=== PATIENT | female | born 2000 | race Hispanic/Latino ===

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

== ENCOUNTER 2018-07-15 22:31 | Emergency (ER) | payer BC ==
[2018-07-15] MEDS ORDERED: Sodium Chloride 0.9% 2,500 ML IV ONE (23:14)
--- NOTE | 2018-07-15 23:14 | C.PDOC ---
History Of Present Illness 18 year old female presents to the ER complaining of throat pain and swelling for the past 2-3 days associated with intermittent subjective fever and chills. Patient reports today she has had multiple episodes of diarrhea and vomiting that began an hour [employer]. Patient has been taking advil for her throat pain with minimal relief. Denies cough, sick contact or recent travel. MDM PHARYNGITIS/TONSILITIS, NO PERITONSILLAR ABSCESS. +TACHYCARDIA, PROBABLE DUE TO FEVER AND DEHYDRATION. LABS, MEDS, SEPSIS IVF PROTOCOL <Lisa Snowden - Last Filed: 07/16/18 00:49> History Per: Patient History/Exam Limitations: no limitations Onset/Duration Of Symptoms: Days (2-3) Current Symptoms Are (Timing): Still Present Recent travel outside of the [place]: No <Lisa Snowden - Last Filed: 07/16/18 00:49> <Beth Christian - Last Filed: 07/16/18 03:26> Time Seen by Provider: 07/15/18 23:04 Chief Complaint (Nursing): Abdominal Pain Past Medical History Reviewed: Historical Data, Nursing Documentation, Vital Signs Vital Signs: Last Vital Signs Temp 99.7 F H 07/15/18 22:35 Pulse 133 H 07/15/18 23:07 Resp 27 H 07/15/18 23:07 BP 116/55 L 07/15/18 23:07 Pulse Ox 98 07/15/18 23:07 Primary Care Provider: Non [facility] Provider, Family History: States: Unknown Family Hx - Social History Hx Tobacco Use: No Hx Alcohol Use: No Hx Substance Use: No - Immunization History Hx Tetanus Toxoid Vaccination: No Hx Influenza Vaccination: No Hx Pneumococcal Vaccination: No <Lisa Snowden - Last Filed: 07/16/18 00:49> Vital Signs: Last Vital Signs Temp 98.3 F 07/16/18 03:22 Pulse 85 07/16/18 03:22 Resp 16 07/16/18 03:22 BP 113/65 07/16/18 03:22 Pulse Ox 96 07/16/18 03:22 <Beth Christian - Last Filed: 07/16/18 03:26> Review Of Systems Except As Marked, All Systems Reviewed And Found Negative. Constitutional: Positive for: Fever (Subjective), Chills ENT: Positive for: Throat Pain Respiratory: Negative for: Cough Gastrointestinal: Positive for: Vomiting, Diarrhea <Lisa Snowden - Last Filed: 07/16/18 00:49> Physical Exam - Physical Exam Appears: Non-toxic Skin: Normal Color, Warm Head: Atraumatic, Normacephalic Eye(s): bilateral: Normal Inspection Oral Mucosa: Moist Throat: Other (Enlarged tonsils bilaterally, kissing, uvula midline, scant exudates, no drooling, no stridor) Neck: Normal, Supple Chest: Symmetrical, No Tenderness Cardiovascular: Rhythm Regular (Tachycardic) Respiratory: Normal Breath Sounds, No Rales, No Rhonchi, No Wheezing Gastrointestinal/Abdominal: Soft, No Tenderness Neurological/Psych: Oriented x3, Normal Speech <Lisa Snowden - Last Filed: 07/16/18 00:49> ED Course And Treatment - Laboratory Results Result Diagrams: 07/15/18 23:42 07/15/18 23:42 Urine POC: Negative ECG: Interpreted By La ECG Rhythm: Sinus Tachycardia ECG Interpretation: Abnormal Rate From EC O2 Sat by Pulse Oximetry: 98 Pulse Ox Interpretation: Normal <Lisa Snowden - Last Filed: 07/16/18 00:49> - Laboratory Results Result Diagrams: 07/15/18 23:42 07/15/18 23:42 Lab Results: pO2 75 mm/Hg (30-55) H 07/16/18 03:03 VBG pH 7.33 (7.32-7.43) 07/16/18 03:03 VBG pCO2 26 mmHg (40-60) L 07/16/18 03:03 VBG HCO3 16.6 mmol/L 07/16/18 03:03 VBG Total CO2 14.5 mmol/L (22-28) L 07/16/18 03:03 VBG O2 Sat (Calc) 97.5 % (40-65) H 07/16/18 03:03 VBG Base Excess -10.5 mmol/L (0.0-2.0) L 07/16/18 03:03 VBG Potassium 2.6 mmol/L (3.6-5.2) L 07/16/18 03:03 Sodium 141.0 mmol/l (132-148) 07/16/18 03:03 Chloride 120.0 mmol/L (98-107) H 07/16/18 03:03 Glucose 81 mg/dl (65-105) 07/16/18 03:03 Lactate 0.6 mmol/L (0.7-2.1) L 07/16/18 03:03 PT 15.3 SECONDS (9.7-12.2) H 07/15/18 23:42 INR 1.4 07/15/18 23:42 APTT 37.1 SECONDS (21-34) H 07/15/18 23:42 Total Bilirubin 1.8 mg/dL (0.2-1.3) H 07/15/18 23:42 AST 32 U/L (14-36) 07/15/18 23:42 ALT < 6 U/L (9-52) L D 07/15/18 23:42 Alkaline Phosphatase 115 U/L (38-126) 07/15/18 23:42 Total Protein 9.4 g/dL (6.3-8.3) H 07/15/18 23:42 Albumin 4.7 g/dL (3.5-5.0) 07/15/18 23:42 Globulin 4.8 gm/dL (2.2-3.9) H 07/15/18 23:42 Albumin/Globulin Ratio 1.0 (1.0-2.1) 07/15/18 23:42 Urine Color Areli (YELLOW) 07/15/18 23:08 Urine Clarity Hazy (Clear) 07/15/18 23:08 Urine pH 5.0 (5.0-8.0) 07/15/18 23:08 Ur Specific [place] 1.020 (1.003-1.030) 07/15/18 23:08 Urine Protein 2+ mg/dL (NEGATIVE) H 07/15/18 23:08 Urine Glucose (UA) Normal mg/dL (Normal) 07/15/18 23:08 Urine Ketones 2+ mg/dL (NEGATIVE) H 07/15/18 23:08 Urine Blood 1+ (NEGATIVE) H 07/15/18 23:08 Urine Nitrate Negative (NEGATIVE) 07/15/18 23:08 Urine Bilirubin Negative (NEGATIVE) 07/15/18 23:08 Urine Urobilinogen 4.0 mg/dL (0.2-1.0) H 07/15/18 23:08 Ur Leukocyte Esterase Neg Minnie/uL (Negative) 07/15/18 23:08 Urine WBC (Auto) 2 /hpf (0-5) 07/15/18 23:08 Urine RBC (Auto) 1 /hpf (0-3) 07/15/18 23:08 Ur Squamous Epith Cells 8 /hpf (0-5) H 07/15/18 23:08 Reevaluation Time: 03:25 Reassessment Condition: Improved (Patient reassessed, is resting comfortably and states she feels much better. Vitals have improved, and patient is comfortable being discharged home.) <Beth Christian - Last Filed: 07/16/18 03:26> Progress - Re-Evaluation Re-evaluation Note: 07/16/18 00:03 neg lactate. PT DOES NOT MEET CODE SEPSIS CRITERIA. IVF IN PROGRES 07/16/18 00:50 MUCH IMPROVED COMPARED TO INITIAL. PS FEELS BETTER. S/P 2L IVF, NO UO. PERSIST TACHYCARDIA IMPROVED FROM INITIAL. WILL CONT IVF UNTIL UO - Data Reviewed Data Reviewed: Lab - Critical Care Citical Care: Excluding Proc Time Critical Care Time: 30 minutes <Lisa Snowden - Last Filed: 07/16/18 00:49> Medical Decision Making Medical Decision Making: PHARYNGITIS/TONSILITIS, NO PERITONSILLAR ABSCESS. +TACHYCARDIA, PROBABLE DUE TO FEVER AND DEHYDRATION. LABS, MEDS, SEPSIS IVF PROTOCOL <Lisa Snowden - Last Filed: 07/16/18 00:49> Disposition Counseled Patient/Family Regarding: Studies Performed, Diagnosis, Need For Followup, Rx Given <Lisa Snowden - Last Filed: 07/16/18 00:49> - Disposition Disposition Time: 03:25 <Beth Christian - Last Filed: 07/16/18 03:26> - Disposition Referrals: [facility] [Outside] [facility] [Outside] Disposition: HOME/ ROUTINE Condition: IMPROVED Prescriptions: Amoxicillin [Amoxil 500 mg Cap] 500 mg PO BID #20 cap Ibuprofen [Motrin] 600 mg PO Q6 #30 tab Ondansetron ODT [Zofran ODT] 4 mg PO TID PRN #12 odt PRN Reason: Nausea/Vomiting Instructions: Dehydration, Adult (DC), Sore Throat, Adult (DC) Forms: [employer] (Czech) Print Language: TAIWANESE - Clinical Impression Clinical Impression: Vomiting, Pharyngitis, Diarrhea, Dehydration - Scribe Statement The provider has reviewed the documentation as recorded by the Scribkrishan Olson All medical record entries made by the Scribe were at my direction and personally dictated by me. I have reviewed the chart and agree that the record accurately reflects my personal performance of the history, physical exam, medical decision making, and the department course for this patient. I have also personally directed, reviewed, and agree with the discharge instructions and disposition. <Lisa Snowden - Last Filed: 07/16/18 00:49> Physician Patient Turnover Patient Signed Over To: Beth Christian Handoff Comments: FU DISPO <Lisa Snowden - Last Filed: 07/16/18 00:49>
[2018-07-15 23:28] LABS: SQUAMOUS EPITHIAL 8 /hpf (0-5); URINE BILIRUBIN NEGATIVE (NEGATIVE); URINE BLOOD 1+ (NEGATIVE); URINE CLARITY Hazy (Clear); URINE COLOR Amber (YELLOW); URINE GLUCOSE (UA) NORMAL (Normal); URINE LEUKOCYTE ESTERASE NEG Leu/uL (Negative); URINE PROTEIN 2+ mg/dL (NEGATIVE)
[2018-07-15 23:48] LABS: VENOUS BLOOD GAS BASE EXCESS 0.4 mmol/L (0.0-2.0); VENOUS BLOOD GAS PCO2 29 mmHg (40-60); VENOUS BLOOD GAS PO2 19 mm/Hg (30-55)
[2018-07-15 23:49] LABS: BASO % 0.3 % (0.0-2.0); HEMOGLOBIN 12.5 g/dL (11.0-16.0); LYMPH # 0.9 K/uL (1.0-4.3); LYMPH % 5.5 % (20.0-40.0); MEAN CORPUSCULAR HEMOGLOBIN 29.7 pg (27.0-31.0); MEAN CORPUSCULAR HGB CONC 34.1 g/dL (33.0-37.0); MEAN PLATELET VOLUME 8.7 fL (7.2-11.7); MONO # 0.9 K/uL (0.0-0.8); MONO % 5.8 % (0.0-10.0); NEUT # 13.6 K/uL (1.8-7.0); NEUT % 88.4 % (50.0-75.0); PLATELET COUNT 261 K/uL (130-400); RED CELL DISTRIBUTION WIDTH 14.2 % (11.5-14.5)
[2018-07-15 23:55] LABS: WHITE BLOOD COUNT 15.4 K/uL (4.8-10.8)
[2018-07-15 23:56] LABS: MEAN CELL VOLUME 87.1 fL (81.0-99.0)
[2018-07-16] LABS: INR 1.4; PARTIAL THROMBOPLASTIN TIME 37.1 SECONDS (21-34); PROTHROMBIN TIME 15.3 SECONDS (9.7-12.2)
[2018-07-16 00:04] LABS: BLOOD UREA NITROGEN 6 mg/dL (7-17); CALCIUM 9.5 mg/dl (8.6-10.4); GFR NON-AFRICAN AMERICAN > 60
[2018-07-16 00:48] LABS: ALBUMIN 4.7 g/dL (3.5-5.0); ALT/SGPT < 6 U/L (9-52); AST/SGOT 32 U/L (14-36)
[2018-07-16] MEDS ORDERED: Sodium Chloride 0.9% 1,000 ML IV ONE (00:48)
[2018-07-16 02:21] LABS: BANDS 2 % (0-2); LYMPHOCYTE 8 % (20-40); MONOCYTE 10 % (0-10); NEUTROPHIL 80 % (50-75); PLATELET ESTIMATE NORMAL (NORMAL); TOTAL CELLS COUNTED 100
[2018-07-16 02:24] VITALS: TEMP 98.3
[2018-07-16 03:12] LABS: VENOUS BLOOD GAS BASE EXCESS -10.5 mmol/L (0.0-2.0); VENOUS BLOOD GAS PCO2 26 mmHg (40-60); VENOUS BLOOD GAS PO2 75 mm/Hg (30-55); VENOUS BLOOD PH 7.33 (7.32-7.43)
[2018-07-16 03:24] VITALS: BP 113/65; PULSE 85; RESP 16; O2SAT 96
== END 2018-07-16 03:32 | disposition home or self-care (01) ==
LOC: C.ER 22:31
DX: E86.0 Dehydration (principal); J02.9 Acute pharyngitis, unspecified; R11.10 Vomiting, unspecified; R19.7 Diarrhea, unspecified
CPT/HCPCS: 80053; 81001; 81025; 82803; 83735; 84100; 85025; 85610; 85730; 87040; 87070; 87086; 87181; 87430; 96361; 96374; 96375; 99285; J1100; J1885; J7030